=== PATIENT | female | born 1945 | race Caucasian/White ===

== ENCOUNTER 2020-03-09 01:01 | Inpatient (IN) ==
[2020-03-09] MEDS ORDERED: Ondansetron 4 MG/2 ML VIAL IVP PRN (01:59)
[2020-03-09] MEDS ORDERED: Naloxone 0.4 MG/ML INJ IVP PRN (01:59)
[2020-03-09] MEDS: Ringers Solution, Lactated 1,000 ML IVC SCH ×2 (02:35→09:51)
[2020-03-09 03:43] LABS: Basophils % 0.5 %; Eosinophils # 0.1 K/mcL (0.0-0.6); Eosinophils % 0.6 %; Hematocrit 32.8 % (35.3-44.9); Hemoglobin 10.8 g/dL (11.5-15.4); Immature Granulocytes % 0.5 % (0-4); Lymphocytes % 23.6 %; Mean Corpuscular HGB Conc 32.9 g/dL (31.6-35.5); Mean Corpuscular Hemoglobin 36.7 pg (28.0-33.3); Mean Corpuscular Volume 111.6 fL (83.0-100.0); Mean Platelet Volume 10.2 fL (9.4-12.4); Monocytes # 0.9 K/mcL (0.0-1.3); Monocytes % 10.2 %; Neutrophils # 5.4 K/mcL (1.6-8.9); Platelet Count 151 K/mcL (140-400); Red Blood Count 2.94 M/mcL (3.82-4.97); Red Cell Distribution Width 12.1 % (11.5-14.5); Segmented Neutrophils % 64.6 %; White Blood Count 8.4 K/mcL (4.3-11.1)
[2020-03-09 03:45] LABS: INR 1.1; Prothrombin Time 12.6 Seconds (9.4-12.1)
[2020-03-09 04:00] LABS: BUN/Creatinine Ratio 16 (6-26); Blood Urea Nitrogen 10 mg/dL (8-23); Carbon Dioxide 23 mEq/L (23-29); Chloride 103 mEq/L (98-107); Glucose 124 mg/dL (70-105); Osmolality,Calculated 278 (280-300); Potassium 3.4 mEq/L (3.5-5.1); Sodium 134 mEq/L (136-145); eGFR For African Americans > 60 (> 60); eGFR For Non-African Americans > 60 (> 60)
[2020-03-09 04:12] LABS: Anisocytosis 1+ (Not Present); Platelet Estimate Normal (Normal)
[2020-03-09] MEDS ORDERED: Potassium Chloride Elixir 20 MEQ/15 ML UDC PO ONE (08:59)
[2020-03-09 11:50] LABS: Adenovirus Not Detected (Not Detect); Bordetella Pertussis Not Detected (Not Detect); Chlamydophila pneumoniae Not Detected (Not Detect); Coronavirus 229E Not Detected (Not Detect); Coronavirus HKU1 Not Detected (Not Detect); Coronavirus NL63 Not Detected (Not Detect); Coronavirus OC43 Not Detected (Not Detect); Human Metapneumovirus Not Detected (Not Detect); Human Rhinovirus/Enterovirus Not Detected (Not Detect); Influenza A Subtype 2009 H1 Not Detected (Not Detect); Influenza B Not Detected (Not Detect); Mycoplasma pneumoniae Not Detected (Not Detect); Parainfluenza Virus 1 Not Detected (Not Detect); Parainfluenza Virus 2 Not Detected (Not Detect); Parainfluenza Virus 3 Not Detected (Not Detect); Parainfluenza Virus 4 Not Detected (Not Detect); Respiratory Syncytial Virus Not Detected (Not Detect); SARS-CoV-2 Not Detected (Not Detect)
[2020-03-09] MEDS ORDERED: Acetaminophen 325 MG TABLET PO PRN (15:10)
[2020-03-09] MEDS ORDERED: Perflutren Lipid Microsphere 1.3 ML in 0.9 % Sodium Chloride 8.7 ML IVP PRN (15:10)
[2020-03-09] MEDS ORDERED: Ethanol\\Acetic Acid\\Na Ace\\Ben 1,000 ML IRRIG.SOLN IR ONE (15:17)
[2020-03-09] MEDS ORDERED: Vancomycin 1,000 MG VIAL ONE (15:17)
[2020-03-09] MEDS ORDERED: Heparin 1,000 UNITS/500 mL 500 ML ONE (15:44)
[2020-03-09] MEDS ORDERED: *HR* Vasopressin 20 UNIT/ML VIAL ONE (15:46)
[2020-03-09] MEDS ORDERED: Acetaminophen IV 1,000 MG/100 ML INFUS..BTL ONE (15:47)
[2020-03-09] MEDS ORDERED: Lidocaine -MPF 2% 2 ML VIAL ONE (16:10)
[2020-03-09] MEDS ORDERED: *HR* Rocuronium Bromide 50 MG/5 ML VIAL ONE (16:10)
[2020-03-09] MEDS ORDERED: *HR* Propofol 200 MG/20 ML VIAL IVP ONE (16:10)
[2020-03-09] MEDS ORDERED: Dexamethasone 4 MG/ML VIAL ONE (16:12)
[2020-03-09] MEDS ORDERED: Ondansetron 4 MG/2 ML VIAL ONE (16:12)
[2020-03-09] MEDS ORDERED: *HR* FentaNYL (PF) 100 MCG/2 ML VIAL ONE (16:13)
[2020-03-09] MEDS ORDERED: Sugammadex Sodium 200 MG/2 ML VIAL IV ONE (16:16)
[2020-03-09] MEDS ORDERED: *HR* Magnesium Sulfate 1 GM/2 ML VIAL ONE (16:16)
[2020-03-09] MEDS ORDERED: Albumin Human 5% 12.5 GM/250 ML IV.SOLN ONE (16:21)
[2020-03-09] MEDS ORDERED: *HR* HYDROMORPHONE 2 MG/ML VIAL ONE (17:27)
[2020-03-09 18:48] LABS: Hematocrit 30.1 % (35.3-44.9); Hemoglobin 9.6 g/dL (11.5-15.4)
[2020-03-09] MEDS ORDERED: sulfaSALAzine 500 MG TABLET PO SCH (21:00)
[2020-03-09] MEDS ORDERED: Gabapentin 300 MG CAPSULE PO SCH (21:00)
[2020-03-09] MEDS ORDERED: Primidone 50 MG TABLET PO SCH (21:00)
[2020-03-10 02:35] LABS: Basophils % 0.2 %; Immature Granulocytes % 0.4 % (0-4); Segmented Neutrophils % 78.7 %
[2020-03-10 02:37] LABS: Eosinophils % 0.1 %; Immature Platelets 4.9 % (1.1-6.1); Lymphocytes # 1.3 K/mcL (0.6-4.6); Lymphocytes % 15.2 %; Mean Corpuscular Hemoglobin 35.6 pg (28.0-33.3); Mean Corpuscular Volume 111.1 fL (83.0-100.0); Mean Platelet Volume 10.7 fL (9.4-12.4); Monocytes # 0.5 K/mcL (0.0-1.3); Monocytes % 5.4 %; Neutrophils # 6.5 K/mcL (1.6-8.9); Platelet Count 130 K/mcL (140-400); Red Blood Count 2.25 M/mcL (3.82-4.97); White Blood Count 8.3 K/mcL (4.3-11.1)
[2020-03-10 02:56] LABS: BUN/Creatinine Ratio 11 (6-26); Blood Urea Nitrogen 6 mg/dL (8-23); Calcium 7.8 mg/dL (8.6-10.3); Carbon Dioxide 24 mEq/L (23-29); Chloride 102 mEq/L (98-107); Glucose 194 mg/dL (70-105); Magnesium 1.9 mg/dL (1.6-2.6); Osmolality,Calculated 277 (280-300); Potassium 4.1 mEq/L (3.5-5.1); Sodium 132 mEq/L (136-145); eGFR For African Americans > 60 (> 60); eGFR For Non-African Americans > 60 (> 60)
[2020-03-10 03:21] LABS: Platelet Estimate Slight Decrease (Normal)
[2020-03-10] MEDS ORDERED: Diphenoxylate/Atropine 1 TAB TABLET PO PRN (03:47)
[2020-03-10] MEDS ORDERED: *HR* Promethazine 25 MG/ML VIAL IM PRN (03:47)
[2020-03-10] MEDS ORDERED: Sennosides 8.6 MG TABLET PO PRN (03:47)
[2020-03-10] MEDS ORDERED: Naloxone 0.4 MG/ML INJ IVP PRN (03:47)
[2020-03-10] MEDS ORDERED: Ringers Solution, Lactated 1,000 ML IVC SCH (03:47)
[2020-03-10] MEDS ORDERED: Ondansetron 4 MG/2 ML VIAL IVP PRN (03:47)
[2020-03-10] MEDS ORDERED: HYDROcodone BIT/Homatropine 5 MG TABLET PO PRN (03:47)
[2020-03-10] MEDS ORDERED: *HR* OxyCODONE Immed Rel 5 MG TABLET PO PRN (03:47)
[2020-03-10] MEDS ORDERED: MOM Conc 10 ML UD.LIQ PO PRN (03:47)
[2020-03-10] MEDS: CeFAZolin 2 GM/120 ML BAG IVPB SCH ×2 (05:02→12:44)
[2020-03-10] MEDS: predniSONE 20 MG TABLET PO SCH (08:49)
[2020-03-10] MEDS: Multivit/Ca/Min/Fe/FA 1 TAB TABLET PO SCH (08:49)
[2020-03-10] MEDS: Ascorbic Acid 500 MG TABLET PO SCH ×2 (08:49→17:24)
[2020-03-10] MEDS: sulfaSALAzine 500 MG TABLET PO SCH ×4 (08:49→20:08)
[2020-03-10] MEDS: Gabapentin 300 MG CAPSULE PO SCH ×5 (08:52→23:56)
[2020-03-10] MEDS ORDERED: predniSONE 20 MG TABLET PO SCH (09:00)
[2020-03-10] MEDS ORDERED: lisinopriL 20 MG TABLET PO SCH (09:00)
[2020-03-10] MEDS: HYDROcodone BIT/Homatropine 5 MG TABLET PO PRN (13:07)
[2020-03-10] MEDS: Aspirin Enteric Coated 81 MG Tablet PO SCH (17:24)
[2020-03-10] MEDS: *HR* OxyCODONE Immed Rel 5 MG TABLET PO PRN (17:31)
[2020-03-10] MEDS: Primidone 50 MG TABLET PO SCH (20:08)
[2020-03-11 04:13] LABS: Basophils % 0.4 %; Eosinophils # 0.1 K/mcL (0.0-0.6); Eosinophils % 1.1 %; Hematocrit 20.8 % (35.3-44.9); Hemoglobin 6.7 g/dL (11.5-15.4); Immature Granulocytes % 0.3 % (0-4); Lymphocytes # 2.5 K/mcL (0.6-4.6); Lymphocytes % 35.7 %; Mean Corpuscular HGB Conc 32.2 g/dL (31.6-35.5); Mean Corpuscular Hemoglobin 35.6 pg (28.0-33.3); Mean Corpuscular Volume 110.6 fL (83.0-100.0); Mean Platelet Volume 10.1 fL (9.4-12.4); Monocytes # 0.7 K/mcL (0.0-1.3); Monocytes % 9.6 %; Platelet Count 124 K/mcL (140-400); Red Blood Count 1.88 M/mcL (3.82-4.97); Red Cell Distribution Width 12.1 % (11.5-14.5); Segmented Neutrophils % 52.9 %; White Blood Count 7.1 K/mcL (4.3-11.1)
[2020-03-11 04:29] LABS: BUN/Creatinine Ratio 12 (6-26); Blood Urea Nitrogen 6 mg/dL (8-23); Calcium 7.5 mg/dL (8.6-10.3); Carbon Dioxide 27 mEq/L (23-29); Chloride 101 mEq/L (98-107); Glucose 117 mg/dL (70-105); Magnesium 1.7 mg/dL (1.6-2.6); Osmolality,Calculated 271 (280-300); Potassium 3.5 mEq/L (3.5-5.1); Sodium 131 mEq/L (136-145); eGFR For African Americans > 60 (> 60); eGFR For Non-African Americans > 60 (> 60)
[2020-03-11 04:42] LABS: Neutrophils # 3.8 K/mcL (1.6-8.9)
[2020-03-11 05:16] LABS: Platelet Estimate Decreased (Normal)
[2020-03-11] MEDS ORDERED: 0.9 % Sodium Chloride 250 ML ONE ×2 (08:24→12:00)
[2020-03-11] MEDS: Aspirin Enteric Coated 81 MG Tablet PO SCH (08:49)
[2020-03-11] MEDS: Ascorbic Acid 500 MG TABLET PO SCH ×2 (08:49→15:44)
[2020-03-11] MEDS: Multivit/Ca/Min/Fe/FA 1 TAB TABLET PO SCH (08:50)
[2020-03-11] MEDS: sulfaSALAzine 500 MG TABLET PO SCH ×4 (08:50→19:54)
[2020-03-11] MEDS: Gabapentin 300 MG CAPSULE PO SCH ×4 (08:52→23:31)
[2020-03-11 16:08] LABS: Hematocrit 29.7 % (35.3-44.9)
[2020-03-11 16:10] LABS: Hemoglobin 9.9 g/dL (11.5-15.4)
[2020-03-11] MEDS: Primidone 50 MG TABLET PO SCH (19:55)
[2020-03-11] MEDS: HYDROcodone BIT/Homatropine 5 MG TABLET PO PRN (19:55)
[2020-03-11] MEDS: *HR* OxyCODONE Immed Rel 5 MG TABLET PO PRN (23:30)
[2020-03-12 01:59] LABS: Basophils % 0.3 %; Eosinophils # 0.1 K/mcL (0.0-0.6); Eosinophils % 1.2 %; Hematocrit 27.8 % (35.3-44.9); Hemoglobin 9.4 g/dL (11.5-15.4); Immature Granulocytes % 0.3 % (0-4); Lymphocytes # 1.9 K/mcL (0.6-4.6); Lymphocytes % 27.5 %; Mean Corpuscular HGB Conc 33.8 g/dL (31.6-35.5); Mean Corpuscular Hemoglobin 34.2 pg (28.0-33.3); Mean Platelet Volume 10.1 fL (9.4-12.4); Monocytes # 0.8 K/mcL (0.0-1.3); Monocytes % 11.5 %; Neutrophils # 4.1 K/mcL (1.6-8.9); Platelet Count 130 K/mcL (140-400); Red Blood Count 2.75 M/mcL (3.82-4.97); Red Cell Distribution Width 18.5 % (11.5-14.5); Segmented Neutrophils % 59.2 %; White Blood Count 6.9 K/mcL (4.3-11.1)
[2020-03-12 02:01] LABS: Mean Corpuscular Volume 101.1 fL (83.0-100.0)
[2020-03-12 02:18] LABS: BUN/Creatinine Ratio 19 (6-26); Blood Urea Nitrogen 8 mg/dL (8-23); Calcium 7.7 mg/dL (8.6-10.3); Carbon Dioxide 27 mEq/L (23-29); Chloride 97 mEq/L (98-107); Glucose 118 mg/dL (70-105); Magnesium 1.6 mg/dL (1.6-2.6); Osmolality,Calculated 271 (280-300); Potassium 3.6 mEq/L (3.5-5.1); Sodium 131 mEq/L (136-145); eGFR For African Americans > 60 (> 60); eGFR For Non-African Americans > 60 (> 60)
[2020-03-12] MEDS: Gabapentin 300 MG CAPSULE PO SCH ×3 (03:15→12:27)
[2020-03-12 06:51] VITALS: BP 115/72
[2020-03-12] MEDS: Ascorbic Acid 500 MG TABLET PO SCH (08:51)
[2020-03-12] MEDS: sulfaSALAzine 500 MG TABLET PO SCH ×2 (08:51→12:27)
[2020-03-12] MEDS: predniSONE 20 MG TABLET PO SCH (08:51)
[2020-03-12] MEDS: Multivit/Ca/Min/Fe/FA 1 TAB TABLET PO SCH (08:51)
[2020-03-12] MEDS: *HR* OxyCODONE Immed Rel 5 MG TABLET PO PRN (08:52)
[2020-03-12] MEDS ORDERED: lisinopriL 20 MG TABLET PO SCH (09:00)
[2020-03-12] MEDS ORDERED: Magnesium Oxide 400 MG TABLET PO SCH (09:00)
== END 2020-03-12 12:59 | DRG 522 ==
LOC: 3NENU → SUATTDRO 01:01
PROVIDERS: ADMIT Internal Medicine; ATTEND Internal Medicine

== ENCOUNTER 2020-04-16 10:35 | Inpatient (IN) ==
[2020-04-16] MEDS ORDERED: Naloxone 0.4 MG/ML INJ IVP PRN (10:41)
[2020-04-16] MEDS ORDERED: Ondansetron 4 MG/2 ML VIAL IVP PRN (10:41)
[2020-04-16] MEDS: *HR* OxyCODONE Immed Rel 5 MG TABLET PO PRN (13:36)
[2020-04-16] MEDS: sulfaSALAzine 500 MG TABLET PO SCH ×3 (13:36→20:10)
[2020-04-16] MEDS: *HR* HYDROcodone/Acet 5/325 mg TABLET PO PRN ×2 (18:48→23:24)
[2020-04-16] MEDS ORDERED: Melatonin 3 MG TABLET PO ONE (23:35)
[2020-04-17] MEDS: *HR* OxyCODONE Immed Rel 5 MG TABLET PO PRN ×4 (02:41→23:10)
[2020-04-17 02:54] LABS: Hematocrit 29.8 % (35.3-44.9); Hemoglobin 9.5 g/dL (11.5-15.4); Mean Corpuscular HGB Conc 31.9 g/dL (31.6-35.5); Mean Corpuscular Hemoglobin 34.8 pg (28.0-33.3); Mean Corpuscular Volume 109.2 fL (83.0-100.0); Mean Platelet Volume 9.6 fL (9.4-12.4); Platelet Count 176 K/mcL (140-400); Red Blood Count 2.73 M/mcL (3.82-4.97); Red Cell Distribution Width 13.7 % (11.5-14.5); White Blood Count 5.8 K/mcL (4.3-11.1)
[2020-04-17 03:00] LABS: INR 1.1; Prothrombin Time 12.6 Seconds (9.4-12.1)
[2020-04-17 03:12] LABS: BUN/Creatinine Ratio 22 (6-26); Blood Urea Nitrogen 12 mg/dL (8-23); Calcium 8.3 mg/dL (8.6-10.3); Carbon Dioxide 24 mEq/L (23-29); Chloride 98 mEq/L (98-107); Glucose 102 mg/dL (70-105); Magnesium 1.6 mg/dL (1.6-2.6); Osmolality,Calculated 272 (280-300); Potassium 4.1 mEq/L (3.5-5.1); Sodium 131 mEq/L (136-145); eGFR For African Americans > 60 (> 60); eGFR For Non-African Americans > 60 (> 60)
[2020-04-17] MEDS: *HR* HYDROcodone/Acet 5/325 mg TABLET PO PRN ×4 (04:20→20:44)
[2020-04-17] MEDS: sulfaSALAzine 500 MG TABLET PO SCH ×4 (08:44→21:35)
[2020-04-17] MEDS ORDERED: Aspirin Enteric Coated 81 MG Tablet PO SCH (09:00)
[2020-04-17] MEDS ORDERED: Lidocaine -MPF 4% 5 ML AMPUL ONE (09:39)
[2020-04-17] MEDS ORDERED: *HR* FentaNYL (PF) 100 MCG/2 ML VIAL ONE (09:41)
[2020-04-17] MEDS ORDERED: *HR* Succinylcholine 200 MG/10 ML VIAL IVP ONE (09:42)
[2020-04-17] MEDS ORDERED: Lidocaine -MPF 2% 2 ML VIAL ONE ×2 (09:42→12:14)
[2020-04-17] MEDS ORDERED: *HR* Propofol 200 MG/20 ML VIAL IVP ONE (09:42)
[2020-04-17] MEDS ORDERED: Ondansetron 4 MG/2 ML VIAL ONE (09:42)
[2020-04-17] MEDS ORDERED: *HR* Rocuronium Bromide 50 MG/5 ML VIAL ONE ×2 (09:42→13:31)
[2020-04-17] MEDS ORDERED: ceFAZolin 2,000 MG in Water for inj. (sterile) 20 ML IVP ONE (11:00)
[2020-04-17] MEDS ORDERED: Ondansetron 4 MG/2 ML VIAL IVP PRN (11:06)
[2020-04-17] MEDS ORDERED: *HR* HYDROmorphone (PF) 1 MG/ML SYRINGE IVP PRN (11:06)
[2020-04-17] MEDS ORDERED: *HR* Labetalol 20 MG/4 ML SYRINGE IVP PRN (11:06)
[2020-04-17] MEDS ORDERED: Ketamine *HR* 500 MG/10 ML MDV ONE (11:23)
[2020-04-17] MEDS ORDERED: Albumin Human 5% 12.5 GM/250 ML IV.SOLN ONE (11:23)
[2020-04-17] MEDS ORDERED: Acetaminophen IV 0 MG/0 ML BAG IVPB ONE (11:23)
[2020-04-17] MEDS ORDERED: *HR* Vasopressin 20 UNIT/ML VIAL ONE (11:23)
[2020-04-17] MEDS ORDERED: *HR* HYDROMORPHONE 2 MG/ML VIAL ONE (11:44)
[2020-04-17] MEDS ORDERED: Sugammadex Sodium 200 MG/2 ML VIAL IV ONE (11:45)
[2020-04-17] MEDS ORDERED: *HR* Magnesium Sulfate 1 GM/2 ML VIAL ONE (11:45)
[2020-04-17] MEDS: Ringers Solution, Lactated 1,000 ML IVC ONE ×2 (12:13→14:24)
[2020-04-17] MEDS ORDERED: Naloxone 0.4 MG/ML INJ IVP PRN (15:57)
[2020-04-17] MEDS: ceFAZolin 2,000 MG in 0.9 % Sodium Chloride 100 ML IVPB SCH ×2 (18:00→23:11)
[2020-04-17] MEDS: Morphine Sulfate 2 MG/ML SYRINGE IVP PRN (21:36)
[2020-04-18] MEDS: Ondansetron 4 MG/2 ML VIAL IVP PRN ×2 (00:16→08:19)
[2020-04-18] MEDS: Morphine Sulfate 2 MG/ML SYRINGE IVP PRN ×5 (00:37→15:25)
[2020-04-18] MEDS: *HR* HYDROcodone/Acet 5/325 mg TABLET PO PRN ×3 (02:00→22:37)
[2020-04-18] MEDS: *HR* OxyCODONE Immed Rel 5 MG TABLET PO PRN ×4 (03:50→19:06)
[2020-04-18 05:13] LABS: Basophils % 0.4 %; Eosinophils % 0.1 %; Hematocrit 23.2 % (35.3-44.9); Immature Granulocytes % 0.1 % (0-4); Lymphocytes # 2.3 K/mcL (0.6-4.6); Lymphocytes % 27.9 %; Mean Corpuscular HGB Conc 32.8 g/dL (31.6-35.5); Mean Corpuscular Hemoglobin 35.2 pg (28.0-33.3); Mean Corpuscular Volume 107.4 fL (83.0-100.0); Mean Platelet Volume 9.7 fL (9.4-12.4); Monocytes % 12.6 %; Neutrophils # 4.8 K/mcL (1.6-8.9); Platelet Count 195 K/mcL (140-400); Red Blood Count 2.16 M/mcL (3.82-4.97); Red Cell Distribution Width 13.5 % (11.5-14.5); Segmented Neutrophils % 58.9 %; White Blood Count 8.1 K/mcL (4.3-11.1)
[2020-04-18 05:15] LABS: Hemoglobin 7.6 g/dL (11.5-15.4)
[2020-04-18] MEDS: *HR* Enoxaparin 30 MG/0.3 ML SYRINGE SQ SCH ×2 (05:20→19:06)
[2020-04-18] MEDS ORDERED: *HR* Metoprolol 5 MG/5 ML VIAL IVP PRN (07:56)
[2020-04-18 08:13] LABS: BUN/Creatinine Ratio 16 (6-26); Blood Urea Nitrogen 8 mg/dL (8-23); Calcium 8.2 mg/dL (8.6-10.3); Carbon Dioxide 22 mEq/L (23-29); Chloride 95 mEq/L (98-107); Glucose 119 mg/dL (70-105); Osmolality,Calculated 267 (280-300); Potassium 4.1 mEq/L (3.5-5.1); Sodium 129 mEq/L (136-145); eGFR For African Americans > 60 (> 60); eGFR For Non-African Americans > 60 (> 60)
[2020-04-18] MEDS: ceFAZolin 2,000 MG in 0.9 % Sodium Chloride 100 ML IVPB SCH (08:19)
[2020-04-18] MEDS: Aspirin Enteric Coated 81 MG Tablet PO SCH (08:20)
[2020-04-18] MEDS: sulfaSALAzine 500 MG TABLET PO SCH ×4 (08:20→20:08)
[2020-04-18] MEDS ORDERED: Metoclopramide 10 MG/2 ML VIAL IVP ONE (10:32)
[2020-04-19] MEDS: *HR* OxyCODONE Immed Rel 5 MG TABLET PO PRN ×4 (00:51→20:24)
[2020-04-19 02:34] LABS: Basophils % 0.4 %; Eosinophils % 0.1 %; Hematocrit 23.3 % (35.3-44.9); Hemoglobin 7.6 g/dL (11.5-15.4); Immature Granulocytes % 0.5 % (0-4); Lymphocytes # 2.4 K/mcL (0.6-4.6); Lymphocytes % 23.6 %; Mean Corpuscular HGB Conc 32.6 g/dL (31.6-35.5); Mean Corpuscular Volume 107.4 fL (83.0-100.0); Mean Platelet Volume 10.2 fL (9.4-12.4); Monocytes # 1.4 K/mcL (0.0-1.3); Monocytes % 14.2 %; Neutrophils # 6.1 K/mcL (1.6-8.9); Platelet Count 239 K/mcL (140-400); Red Blood Count 2.17 M/mcL (3.82-4.97); Red Cell Distribution Width 13.8 % (11.5-14.5); Segmented Neutrophils % 61.2 %
[2020-04-19 02:55] LABS: BUN/Creatinine Ratio 17 (6-26); Blood Urea Nitrogen 8 mg/dL (8-23); Calcium 8.2 mg/dL (8.6-10.3); Carbon Dioxide 20 mEq/L (23-29); Chloride 94 mEq/L (98-107); Glucose 162 mg/dL (70-105); Magnesium 1.7 mg/dL (1.6-2.6); Osmolality,Calculated 270 (280-300); Phosphorous 1.9 mg/dL (2.7-4.5); Potassium 3.6 mEq/L (3.5-5.1); Sodium 129 mEq/L (136-145); eGFR For African Americans > 60 (> 60); eGFR For Non-African Americans > 60 (> 60)
[2020-04-19] MEDS: *HR* HYDROcodone/Acet 5/325 mg TABLET PO PRN ×2 (04:24→10:12)
[2020-04-19] MEDS: Aspirin Enteric Coated 81 MG Tablet PO SCH (07:23)
[2020-04-19] MEDS: sulfaSALAzine 500 MG TABLET PO SCH ×4 (07:23→20:24)
[2020-04-19] MEDS: *HR* Enoxaparin 30 MG/0.3 ML SYRINGE SQ SCH ×2 (07:24→16:48)
[2020-04-19] MEDS: Ondansetron 4 MG/2 ML VIAL IVP PRN ×2 (07:25→16:47)
[2020-04-19] MEDS ORDERED: 0.9 % Sodium Chloride 1,000 ML IVC ONE (13:05)
[2020-04-19 14:21] LABS: Basophils % 0.4 %; Eosinophils % 0.2 %; Hematocrit 22.8 % (35.3-44.9); Hemoglobin 7.5 g/dL (11.5-15.4); Immature Granulocytes % 0.4 % (0-4); Lymphocytes # 2.2 K/mcL (0.6-4.6); Lymphocytes % 20.7 %; Mean Corpuscular HGB Conc 32.9 g/dL (31.6-35.5); Mean Corpuscular Hemoglobin 35.4 pg (28.0-33.3); Mean Corpuscular Volume 107.5 fL (83.0-100.0); Mean Platelet Volume 10.1 fL (9.4-12.4); Monocytes # 1.4 K/mcL (0.0-1.3); Monocytes % 13.7 %; Neutrophils # 6.8 K/mcL (1.6-8.9); Platelet Count 261 K/mcL (140-400); Red Blood Count 2.12 M/mcL (3.82-4.97); Red Cell Distribution Width 13.9 % (11.5-14.5); Segmented Neutrophils % 64.6 %; White Blood Count 10.5 K/mcL (4.3-11.1)
[2020-04-19] MEDS: Morphine Sulfate 2 MG/ML SYRINGE IVP PRN ×2 (16:49→22:54)
[2020-04-20 01:33] LABS: Basophils % 0.3 %; Eosinophils % 0.3 %; Hematocrit 22.6 % (35.3-44.9); Hemoglobin 7.1 g/dL (11.5-15.4); Immature Granulocytes % 0.3 % (0-4); Lymphocytes # 1.7 K/mcL (0.6-4.6); Lymphocytes % 18.6 %; Mean Corpuscular HGB Conc 31.4 g/dL (31.6-35.5); Mean Corpuscular Hemoglobin 34.3 pg (28.0-33.3); Mean Corpuscular Volume 109.2 fL (83.0-100.0); Mean Platelet Volume 9.9 fL (9.4-12.4); Monocytes # 1.2 K/mcL (0.0-1.3); Monocytes % 13.4 %; Neutrophils # 6.2 K/mcL (1.6-8.9); Platelet Count 247 K/mcL (140-400); Red Blood Count 2.07 M/mcL (3.82-4.97); Segmented Neutrophils % 67.1 %; White Blood Count 9.3 K/mcL (4.3-11.1)
[2020-04-20 02:00] LABS: BUN/Creatinine Ratio 13 (6-26); Blood Urea Nitrogen 6 mg/dL (8-23); Calcium 7.9 mg/dL (8.6-10.3); Carbon Dioxide 23 mEq/L (23-29); Chloride 96 mEq/L (98-107); Glucose 129 mg/dL (70-105); Magnesium 1.8 mg/dL (1.6-2.6); Osmolality,Calculated 271 (280-300); Phosphorous 1.5 mg/dL (2.7-4.5); Potassium 3.1 mEq/L (3.5-5.1); Sodium 131 mEq/L (136-145); eGFR For African Americans > 60 (> 60); eGFR For Non-African Americans > 60 (> 60)
[2020-04-20] MEDS: *HR* OxyCODONE Immed Rel 5 MG TABLET PO PRN (03:40)
[2020-04-20] MEDS: *HR* HYDROcodone/Acet 5/325 mg TABLET PO PRN ×3 (05:44→20:16)
[2020-04-20] MEDS: *HR* Enoxaparin 30 MG/0.3 ML SYRINGE SQ SCH ×2 (05:44→17:14)
[2020-04-20] MEDS: Morphine Sulfate 2 MG/ML SYRINGE IVP PRN (08:22)
[2020-04-20] MEDS: sulfaSALAzine 500 MG TABLET PO SCH ×4 (08:22→20:16)
[2020-04-20] MEDS: Aspirin Enteric Coated 81 MG Tablet PO SCH (08:23)
[2020-04-20] MEDS ORDERED: *HR* HYDROcodone/Acet 5/325 mg TABLET PO PRN (14:50)
[2020-04-20] MEDS ORDERED: Acetaminophen 325 MG TABLET PO PRN (14:50)
[2020-04-20 15:57] LABS: Hematocrit 27.2 % (35.3-44.9)
[2020-04-21] MEDS: *HR* HYDROcodone/Acet 5/325 mg TABLET PO PRN ×2 (00:35→05:53)
[2020-04-21 01:39] LABS: BUN/Creatinine Ratio 16 (6-26); Blood Urea Nitrogen 7 mg/dL (8-23); Calcium 8.1 mg/dL (8.6-10.3); Carbon Dioxide 26 mEq/L (23-29); Chloride 96 mEq/L (98-107); Glucose 117 mg/dL (70-105); Magnesium 2.2 mg/dL (1.6-2.6); Osmolality,Calculated 271 (280-300); Potassium 3.5 mEq/L (3.5-5.1); Sodium 131 mEq/L (136-145); eGFR For African Americans > 60 (> 60); eGFR For Non-African Americans > 60 (> 60)
[2020-04-21] MEDS: *HR* Enoxaparin 30 MG/0.3 ML SYRINGE SQ SCH (05:53)
[2020-04-21] MEDS ORDERED: Potassium Phosphate 44 MEQ in 0.9 % Sodium Chloride 250 ML IVPB ONE (08:34)
[2020-04-21] MEDS ORDERED: *HR* HYDROcodone/Acet 5/325 mg TABLET PO PRN (08:39)
[2020-04-21] MEDS: Acetaminophen 325 MG TABLET PO SCH ×4 (09:01→23:31)
[2020-04-21] MEDS: Aspirin Enteric Coated 81 MG Tablet PO SCH (09:01)
[2020-04-21] MEDS: Ondansetron 4 MG/2 ML VIAL IVP PRN (09:01)
[2020-04-21] MEDS: sulfaSALAzine 500 MG TABLET PO SCH ×4 (09:01→21:20)
[2020-04-21 10:48] LABS: Hematocrit 23.5 % (35.3-44.9); Hemoglobin 7.6 g/dL (11.5-15.4)
[2020-04-21] MEDS: Pantoprazole 40 MG VIAL IVP SCH ×2 (15:52→16:00)
[2020-04-21] MEDS: Scopolamine Patch 1.5 MG PATCH.TD72 TD SCH (15:52)
[2020-04-21] MEDS: Gabapentin 300 MG CAPSULE PO SCH (21:20)
[2020-04-22 01:38] LABS: BUN/Creatinine Ratio 16 (6-26); Blood Urea Nitrogen 6 mg/dL (8-23); Calcium 7.7 mg/dL (8.6-10.3); Carbon Dioxide 25 mEq/L (23-29); Chloride 97 mEq/L (98-107); Glucose 104 mg/dL (70-105); Magnesium 1.8 mg/dL (1.6-2.6); Osmolality,Calculated 270 (280-300); Potassium 3.6 mEq/L (3.5-5.1); Sodium 131 mEq/L (136-145); eGFR For African Americans > 60 (> 60); eGFR For Non-African Americans > 60 (> 60)
[2020-04-22 01:52] LABS: Basophils % 0.5 %; Eosinophils # 0.1 K/mcL (0.0-0.6); Eosinophils % 2.1 %; Hematocrit 20.7 % (35.3-44.9); Hemoglobin 6.8 g/dL (11.5-15.4); Immature Granulocytes % 0.5 % (0-4); Lymphocytes # 1.7 K/mcL (0.6-4.6); Lymphocytes % 27.3 %; Mean Corpuscular HGB Conc 32.9 g/dL (31.6-35.5); Mean Corpuscular Hemoglobin 35.2 pg (28.0-33.3); Mean Corpuscular Volume 107.3 fL (83.0-100.0); Mean Platelet Volume 9.5 fL (9.4-12.4); Monocytes # 0.7 K/mcL (0.0-1.3); Monocytes % 11.9 %; Neutrophils # 3.5 K/mcL (1.6-8.9); Nucleated Red Blood Cells 0.5 /100 WBC (0); Platelet Count 252 K/mcL (140-400); Red Blood Count 1.93 M/mcL (3.82-4.97); Red Cell Distribution Width 14.6 % (11.5-14.5); Segmented Neutrophils % 57.7 %; White Blood Count 6.1 K/mcL (4.3-11.1)
[2020-04-22] MEDS ORDERED: 0.9 % Sodium Chloride 250 ML IVC SCH (04:00)
[2020-04-22] MEDS: Pantoprazole 40 MG VIAL IVP SCH ×2 (04:53→18:35)
[2020-04-22] MEDS: Acetaminophen 325 MG TABLET PO SCH ×3 (04:54→18:34)
[2020-04-22] MEDS: sulfaSALAzine 500 MG TABLET PO SCH ×4 (09:18→21:43)
[2020-04-22] MEDS: Gabapentin 300 MG CAPSULE PO SCH ×3 (09:19→21:44)
[2020-04-22 11:56] LABS: Basophils % 0.7 %; Eosinophils # 0.1 K/mcL (0.0-0.6); Eosinophils % 1.2 %; Hematocrit 27.7 % (35.3-44.9); Immature Granulocytes % 0.5 % (0-4); Lymphocytes # 1.4 K/mcL (0.6-4.6); Lymphocytes % 25.1 %; Mean Corpuscular HGB Conc 32.5 g/dL (31.6-35.5); Mean Corpuscular Hemoglobin 33.6 pg (28.0-33.3); Mean Corpuscular Volume 103.4 fL (83.0-100.0); Mean Platelet Volume 9.1 fL (9.4-12.4); Monocytes # 0.7 K/mcL (0.0-1.3); Monocytes % 11.7 %; Neutrophils # 3.4 K/mcL (1.6-8.9); Nucleated Red Blood Cells 0.4 /100 WBC (0); Platelet Count 289 K/mcL (140-400); Red Blood Count 2.68 M/mcL (3.82-4.97); Red Cell Distribution Width 19.1 % (11.5-14.5); Segmented Neutrophils % 60.8 %; White Blood Count 5.7 K/mcL (4.3-11.1)
[2020-04-22] MEDS: Sennosides 8.6 MG TABLET PO SCH (18:36)
[2020-04-22 21:42] LABS: Hematocrit 28.2 % (35.3-44.9); Hemoglobin 9.4 g/dL (11.5-15.4)
[2020-04-23] MEDS: Acetaminophen 325 MG TABLET PO SCH ×3 (00:03→12:20)
[2020-04-23 03:59] LABS: Basophils % 0.7 %; Eosinophils # 0.1 K/mcL (0.0-0.6); Eosinophils % 1.9 %; Hematocrit 30.2 % (35.3-44.9); Hemoglobin 9.9 g/dL (11.5-15.4); Immature Granulocytes % 0.5 % (0-4); Lymphocytes # 1.5 K/mcL (0.6-4.6); Lymphocytes % 26.4 %; Mean Corpuscular HGB Conc 32.8 g/dL (31.6-35.5); Mean Corpuscular Hemoglobin 34.6 pg (28.0-33.3); Mean Corpuscular Volume 105.6 fL (83.0-100.0); Mean Platelet Volume 9.3 fL (9.4-12.4); Monocytes # 0.7 K/mcL (0.0-1.3); Monocytes % 12.2 %; Neutrophils # 3.3 K/mcL (1.6-8.9); Platelet Count 309 K/mcL (140-400); Red Blood Count 2.86 M/mcL (3.82-4.97); Red Cell Distribution Width 18.8 % (11.5-14.5); Segmented Neutrophils % 58.3 %; White Blood Count 5.7 K/mcL (4.3-11.1)
[2020-04-23 04:18] LABS: BUN/Creatinine Ratio 17 (6-26); Blood Urea Nitrogen 7 mg/dL (8-23); Calcium 8.4 mg/dL (8.6-10.3); Carbon Dioxide 25 mEq/L (23-29); Chloride 96 mEq/L (98-107); Glucose 84 mg/dL (70-105); Osmolality,Calculated 273 (280-300); Potassium 3.4 mEq/L (3.5-5.1); Sodium 133 mEq/L (136-145); eGFR For African Americans > 60 (> 60); eGFR For Non-African Americans > 60 (> 60)
[2020-04-23] MEDS: Pantoprazole 40 MG VIAL IVP SCH ×2 (05:10→18:14)
[2020-04-23] MEDS: Gabapentin 300 MG CAPSULE PO SCH ×3 (09:06→21:02)
[2020-04-23] MEDS: sulfaSALAzine 500 MG TABLET PO SCH ×4 (09:06→21:02)
[2020-04-23] MEDS: Sennosides 8.6 MG TABLET PO SCH (09:07)
[2020-04-23] MEDS: lisinopriL 10 MG TABLET PO SCH (15:55)
[2020-04-23] MEDS: Acetaminophen IV 1,000 MG/100 ML BAG IVPB SCH ×2 (16:41→23:13)
[2020-04-24 01:34] LABS: Basophils % 0.6 %; Eosinophils # 0.1 K/mcL (0.0-0.6); Eosinophils % 1.8 %; Hematocrit 30.2 % (35.3-44.9); Hemoglobin 9.8 g/dL (11.5-15.4); Immature Granulocytes % 0.6 % (0-4); Lymphocytes # 1.8 K/mcL (0.6-4.6); Lymphocytes % 29.6 %; Mean Corpuscular HGB Conc 32.5 g/dL (31.6-35.5); Mean Corpuscular Hemoglobin 34.8 pg (28.0-33.3); Mean Corpuscular Volume 107.1 fL (83.0-100.0); Mean Platelet Volume 9.2 fL (9.4-12.4); Monocytes % 16.5 %; Neutrophils # 3.2 K/mcL (1.6-8.9); Platelet Count 325 K/mcL (140-400); Red Blood Count 2.82 M/mcL (3.82-4.97); Red Cell Distribution Width 18.7 % (11.5-14.5); Segmented Neutrophils % 50.9 %; White Blood Count 6.2 K/mcL (4.3-11.1)
[2020-04-24 01:56] LABS: BUN/Creatinine Ratio 16 (6-26); Blood Urea Nitrogen 6 mg/dL (8-23); Calcium 8.2 mg/dL (8.6-10.3); Carbon Dioxide 26 mEq/L (23-29); Chloride 95 mEq/L (98-107); Glucose 108 mg/dL (70-105); Osmolality,Calculated 270 (280-300); Potassium 3.5 mEq/L (3.5-5.1); Sodium 131 mEq/L (136-145); eGFR For African Americans > 60 (> 60); eGFR For Non-African Americans > 60 (> 60)
[2020-04-24] MEDS: Pantoprazole 40 MG VIAL IVP SCH ×2 (04:58→16:32)
[2020-04-24] MEDS: Gabapentin 300 MG CAPSULE PO SCH ×3 (09:05→19:56)
[2020-04-24] MEDS: Acetaminophen IV 1,000 MG/100 ML BAG IVPB SCH ×3 (09:05→23:06)
[2020-04-24] MEDS: sulfaSALAzine 500 MG TABLET PO SCH ×4 (09:05→19:55)
[2020-04-24] MEDS: lisinopriL 10 MG TABLET PO SCH (09:05)
[2020-04-24] MEDS: Sennosides 8.6 MG TABLET PO SCH (09:05)
[2020-04-24] MEDS: Scopolamine Patch 1.5 MG PATCH.TD72 TD SCH (13:33)
[2020-04-25 05:07] LABS: Basophils % 0.6 %; Eosinophils # 0.1 K/mcL (0.0-0.6); Eosinophils % 1.8 %; Hematocrit 32.7 % (35.3-44.9); Hemoglobin 10.3 g/dL (11.5-15.4); Immature Granulocytes % 0.7 % (0-4); Lymphocytes # 1.8 K/mcL (0.6-4.6); Mean Corpuscular HGB Conc 31.5 g/dL (31.6-35.5); Mean Corpuscular Hemoglobin 34.1 pg (28.0-33.3); Mean Corpuscular Volume 108.3 fL (83.0-100.0); Monocytes % 14.7 %; Neutrophils # 3.8 K/mcL (1.6-8.9); Platelet Count 349 K/mcL (140-400); Red Blood Count 3.02 M/mcL (3.82-4.97); Red Cell Distribution Width 18.6 % (11.5-14.5); Segmented Neutrophils % 56.2 %; White Blood Count 6.8 K/mcL (4.3-11.1)
[2020-04-25 05:24] LABS: BUN/Creatinine Ratio 15 (6-26); Blood Urea Nitrogen 5 mg/dL (8-23); Calcium 8.5 mg/dL (8.6-10.3); Carbon Dioxide 30 mEq/L (23-29); Chloride 97 mEq/L (98-107); Glucose 119 mg/dL (70-105); Osmolality,Calculated 276 (280-300); Potassium 3.2 mEq/L (3.5-5.1); Sodium 134 mEq/L (136-145); eGFR For African Americans > 60 (> 60); eGFR For Non-African Americans > 60 (> 60)
[2020-04-25] MEDS: Pantoprazole 40 MG VIAL IVP SCH (05:34)
[2020-04-25 09:03] LABS: Magnesium 1.6 mg/dL (1.6-2.6)
[2020-04-25] MEDS: lisinopriL 10 MG TABLET PO SCH (09:04)
[2020-04-25] MEDS: Gabapentin 300 MG CAPSULE PO SCH ×2 (09:04→12:43)
[2020-04-25] MEDS: sulfaSALAzine 500 MG TABLET PO SCH ×2 (09:04→12:43)
[2020-04-25 09:07] LABS: Estimated Average Glucose 80 mg/dl; Hemoglobin A1C 4.4 %
[2020-04-25 11:36] VITALS: BP 103/62
[2020-04-25 13:03] LABS: Influenza A PCR Negative (Negative); Influenza B PCR Negative (Negative); Resp. Syncytial Virus PCR Negative (Negative)
[2020-04-25 13:24] LABS: SARS-CoV-2 by PCR (In House) Negative (Negative)
== END 2020-04-25 15:15 | DRG 481 ==
LOC: 3NENU → SUATTDRO 13:41
PROVIDERS: ADMIT Internal Medicine; ATTEND Internal Medicine

== ENCOUNTER 2021-08-31 15:14 | Observation (INO) ==
[2021-08-31] MEDS ORDERED: Ondansetron 4 MG/2 ML VIAL IVP PRN (18:36)
[2021-08-31] MEDS ORDERED: Naloxone 0.4 MG/ML INJ IVP PRN (18:36)
[2021-08-31] MEDS ORDERED: Acetaminophen 325 MG TABLET PO PRN (18:36)
[2021-08-31] MEDS: 0.9 % Sodium Chloride 1,000 ML IVC SCH (21:43)
[2021-08-31] MEDS: *HR* OxyCODONE Immed Rel 5 MG TABLET PO PRN (21:47)
[2021-09-01 04:00] LABS: Basophils # 0.1 K/mcL (0.0-0.2); Basophils % 0.7 %; Eosinophils # 0.1 K/mcL (0.0-0.6); Eosinophils % 1.7 %; Hematocrit 29.6 % (35.3-44.9); Hemoglobin 9.5 g/dL (11.5-15.4); Immature Granulocytes % 0.1 % (0-4); Lymphocytes % 29.1 %; Mean Corpuscular HGB Conc 32.1 g/dL (31.6-35.5); Mean Corpuscular Hemoglobin 35.2 pg (28.0-33.3); Mean Corpuscular Volume 109.6 fL (83.0-100.0); Mean Platelet Volume 10.9 fL (9.4-12.4); Monocytes # 0.6 K/mcL (0.0-1.3); Monocytes % 9.2 %; Neutrophils # 4.1 K/mcL (1.6-8.9); Platelet Count 153 K/mcL (140-400); Red Cell Distribution Width 12.8 % (11.5-14.5); Segmented Neutrophils % 59.2 %; White Blood Count 6.9 K/mcL (4.3-11.1)
[2021-09-01 04:02] LABS: INR 1.3; Prothrombin Time 14.1 Seconds (9.4-12.1)
[2021-09-01] MEDS: *HR* OxyCODONE Immed Rel 5 MG TABLET PO PRN ×3 (04:04→20:50)
[2021-09-01 04:17] LABS: BUN/Creatinine Ratio 18 (6-26); Blood Urea Nitrogen 12 mg/dL (8-23); Calcium 8.3 mg/dL (8.6-10.3); Carbon Dioxide 25 mEq/L (23-29); Chloride 101 mEq/L (98-107); Glucose 64 mg/dL (70-105); Magnesium 1.4 mg/dL (1.6-2.6); Osmolality,Calculated 280 (280-300); Potassium 3.6 mEq/L (3.5-5.1); Sodium 136 mEq/L (136-145); eGFR For African Americans > 60 (> 60); eGFR For Non-African Americans > 60 (> 60)
[2021-09-01] MEDS: 0.9 % Sodium Chloride 1,000 ML IVC SCH (05:55)
[2021-09-01] MEDS: *HR* HYDROcodone/Acet 5/325 mg TABLET PO PRN (08:28)
[2021-09-01] MEDS: Gabapentin 300 MG CAPSULE PO SCH ×2 (16:42→20:50)
[2021-09-01] MEDS: sulfaSALAzine 500 MG TABLET PO SCH ×2 (19:34→20:51)
[2021-09-01] MEDS: Propranolol LA (24 HR) 60 MG CAP.SA.24H PO SCH (20:51)
[2021-09-01] MEDS: Aspirin Enteric Coated 81 MG Tablet PO SCH (20:51)
[2021-09-02] MEDS: Gabapentin 300 MG CAPSULE PO SCH ×5 (00:42→21:08)
[2021-09-02] MEDS: Propranolol LA (24 HR) 60 MG CAP.SA.24H PO SCH ×2 (07:52→21:07)
[2021-09-02] MEDS: sulfaSALAzine 500 MG TABLET PO SCH ×4 (07:52→21:08)
[2021-09-02] MEDS: *HR* OxyCODONE Immed Rel 5 MG TABLET PO PRN ×2 (07:57→21:08)
[2021-09-02] MEDS: Aspirin Enteric Coated 81 MG Tablet PO SCH (21:07)
[2021-09-03] MEDS: Gabapentin 300 MG CAPSULE PO SCH ×5 (01:52→20:48)
[2021-09-03] MEDS: sulfaSALAzine 500 MG TABLET PO SCH ×4 (09:49→20:47)
[2021-09-03] MEDS: *HR* OxyCODONE Immed Rel 5 MG TABLET PO PRN ×3 (09:50→23:03)
[2021-09-03] MEDS: Propranolol LA (24 HR) 60 MG CAP.SA.24H PO SCH ×2 (09:51→20:48)
[2021-09-03 09:59] LABS: Hematocrit 32.7 % (35.3-44.9); Hemoglobin 10.4 g/dL (11.5-15.4); Mean Corpuscular HGB Conc 31.8 g/dL (31.6-35.5); Mean Corpuscular Hemoglobin 35.1 pg (28.0-33.3); Mean Corpuscular Volume 110.5 fL (83.0-100.0); Mean Platelet Volume 10.5 fL (9.4-12.4); Platelet Count 171 K/mcL (140-400); Red Blood Count 2.96 M/mcL (3.82-4.97); Red Cell Distribution Width 13.1 % (11.5-14.5); White Blood Count 7.6 K/mcL (4.3-11.1)
[2021-09-03] MEDS: Aspirin Enteric Coated 81 MG Tablet PO SCH (20:48)
[2021-09-03] MEDS: *HR* HYDROcodone/Acet 5/325 mg TABLET PO PRN (20:51)
[2021-09-03] MEDS ORDERED: *HR* LORazepam 2 MG/ML VIAL IVP ONE (23:10)
[2021-09-04] MEDS: Gabapentin 300 MG CAPSULE PO SCH ×3 (01:40→13:22)
[2021-09-04] MEDS: Propranolol LA (24 HR) 60 MG CAP.SA.24H PO SCH (07:49)
[2021-09-04] MEDS: sulfaSALAzine 500 MG TABLET PO SCH ×2 (07:49→13:22)
[2021-09-04 13:18] LABS: Adenovirus Not Detected (Not Detect); Bordetella Pertussis Not Detected (Not Detect); Chlamydophila pneumoniae Not Detected (Not Detect); Coronavirus 229E Not Detected (Not Detect); Coronavirus HKU1 Not Detected (Not Detect); Coronavirus NL63 Not Detected (Not Detect); Coronavirus OC43 Not Detected (Not Detect); Human Metapneumovirus Not Detected (Not Detect); Human Rhinovirus/Enterovirus Not Detected (Not Detect); Influenza A Subtype 2009 H1 Not Detected (Not Detect); Influenza B Not Detected (Not Detect); Mycoplasma pneumoniae Not Detected (Not Detect); Parainfluenza Virus 1 Not Detected (Not Detect); Parainfluenza Virus 2 Not Detected (Not Detect); Parainfluenza Virus 3 Not Detected (Not Detect); Parainfluenza Virus 4 Not Detected (Not Detect); Respiratory Syncytial Virus Not Detected (Not Detect); SARS-CoV-2 Not Detected (Not Detect)
[2021-09-04 15:32] VITALS: BP 118/70; PULSE 72; TEMP 97.9; O2SAT 94
== END 2021-09-04 16:04 ==
LOC: 4WAOSI → SUATTDRO 18:36
PROVIDERS: ADMIT Family Medicine; ATTEND Family Medicine